=== PATIENT | male | born 1970 | race Caucasian/White ===

== ENCOUNTER 2022-07-06 13:21 | Inpatient (IN) | payer MEDICAID ==
[~2022-07-06] VITALS: Ht 160 cm; Wt 97.5 kg
--- NOTE | 2022-07-06 13:05 | NUR ---
ADMITTED MED/SURG FROM [facility] A 52 YO MALE AWAKE ALERT AND ORIENTED X3 WITH ADM DX OF GI BLEED. DAUGHTER AT BEDSIDE AND HELPED INTERPRETING, ROUTINE ADMISSION ASSESSMENT INITIATED. CLOSELY MONITORED
[2022-07-06 13:30] VITALS: BP 130/72
--- NOTE | 2022-07-06 15:09 | NUR ---
SPOKE WITH DR Christopher MULLER REGARDING ADMISSION STATUS WITH ORDERS, DR DEL TORO BEEN CALLED FOR GI CONSULT
[2022-07-06 15:11] VITALS: BP 128/69
[2022-07-06] MEDS: ACETAMINOPHEN 325 MG TABLET PO PRN (15:55)
--- NOTE | 2022-07-06 15:55 | NUR ---
Patient complaining of headache, Tylenol 2 tablets given PO as ordered. No signs of distress, patient resting comfortably in bed. Need attended
[2022-07-06] MEDS ORDERED: ONDANSETRON 4 MG/2 ML VIAL IV PRN (18:15)
[2022-07-06] MEDS ORDERED: MAGNESIUM HYDROXIDE 30 ML LIQUID UDC PO PRN (18:15)
[2022-07-06] MEDS ORDERED: ACETAMINOPHEN 325 MG TABLET PO PRN (18:15)
[2022-07-06 20:00] VITALS: BP 117/61
[2022-07-06] MEDS: GUAIFENESIN/CODEINE 5 ML LIQUID UDC PO PRN (21:07)
[2022-07-07 05:00] VITALS: BP 106/50
[2022-07-07] MEDS: PANTOPRAZOLE SODIUM 40 MG TABLET.DR PO SCH (06:37)
[2022-07-07 07:23] LABS: HEMATOCRIT 28.8 % (36.7-47.1); MEAN CORPUSCULAR HEMOGLOBIN 24.2 uug (23.8-33.4); MEAN CORPUSCULAR VOLUME 76.1 fL (73.0-96.2); PLATELET COUNT (AUTO) 385 K/uL (152-348)
[2022-07-07 07:44] LABS: CREATININE 0.8 mg/dL (0.6-1.3); MAGNESIUM 2.2 mg/dL (1.8-2.4); PHOSPHOROUS 4.2 mg/dL (2.5-4.9); POTASSIUM 3.9 mmol/L (3.5-5.1)
[2022-07-07 07:55] LABS: THYROID STIMULATING HORMONE 4.844 mIU/mL (0.358-3.740)
[2022-07-07 12:06] VITALS: BP 122/72
[2022-07-07 16:03] VITALS: BP 120/63
[2022-07-07 20:00] VITALS: BP 127/75
[2022-07-08 04:00] VITALS: BP 120/63
--- NOTE | 2022-07-08 04:28 | NUR ---
Patient alert oriented, speak Green[place]ic daughter able to interpret for the patient, no complain of pain, no bloody bm noted so far, v/s stable, according to notes for possible procedure on Sunday. Daughter expressing to take father home or other hospital, cause wanted immediate care of the GI MD, patient has no active bleeding hgh 9.1, at this time, no chest pain noted. Notify Dr Chong patient request, MD reply stated no procedure on weekend, notify the daughter and patient.
--- NOTE | 2022-07-08 06:17 | NUR ---
Patient had a bowel movement x1 today with no blood on the bm, denies pain at this time, cont to monitor.
[2022-07-08 07:19] LABS: HEMATOCRIT 31.8 % (36.7-47.1); MEAN CORPUSCULAR HEMOGLOBIN 23.5 uug (23.8-33.4); MEAN CORPUSCULAR VOLUME 76.5 fL (73.0-96.2); PLATELET COUNT (AUTO) 418 K/uL (152-348)
[2022-07-08 07:48] LABS: BILIRUBIN,TOTAL 1.3 mg/dL (0.2-1.0); CREATININE 0.9 mg/dL (0.6-1.3); POTASSIUM 4.3 mmol/L (3.5-5.1)
[2022-07-08] MEDS: PANTOPRAZOLE SODIUM 40 MG TABLET.DR PO SCH ×2 (09:56→17:58)
[2022-07-08] MEDS: SOD FERRIC GLUC COMPLX/SUCROSE 125 MG in IV NORMAL SALINE 100 ML IV SCH (14:57)
[2022-07-08 20:00] VITALS: BP 96/60
[2022-07-09] MEDS: PANTOPRAZOLE SODIUM 40 MG TABLET.DR PO SCH ×2 (06:40→17:43)
[2022-07-09 08:00] VITALS: BP 134/82
[2022-07-09 11:35] VITALS: BP 148/83
[2022-07-09] MEDS: SOD FERRIC GLUC COMPLX/SUCROSE 125 MG in IV NORMAL SALINE 100 ML IV SCH (14:05)
[2022-07-09] MEDS ORDERED: GOLYTELY 4000 ML BOTTLE PO ONE (14:30)
[2022-07-09 15:59] VITALS: BP 132/69
--- NOTE | 2022-07-09 16:19 | NUR ---
SHIFT NOTE: PT IS ALERT AND ORIENTED X4 BUT MOZAMBICAN SPEAKING. HEAT PLANT SPECIALIST EXPLAINED TO PATIENT ABOUT GOLYTELY PT VERBALIZED UNDERSTANDING. NO SIGNS OF DISTRESS NOTED PATIENT DENIES PAIN. MEDICATION GIVEN ORDERED NO SIGNS ADVERSE REACTION NOTED. WILL ENDORSE TO EVENING NURSE. FALLS AND SAFETY PRECAUTION MAINTAINED WILL CONTINUE TO MONITOR.
[2022-07-10] MEDS: PANTOPRAZOLE SODIUM 40 MG TABLET.DR PO SCH ×2 (06:37→17:18)
[2022-07-10 06:58] LABS: HEMATOCRIT 31.5 % (36.7-47.1); MEAN CORPUSCULAR HEMOGLOBIN 23.7 uug (23.8-33.4); MEAN CORPUSCULAR VOLUME 75.5 fL (73.0-96.2); PLATELET COUNT (AUTO) 396 K/uL (152-348)
[2022-07-10 12:04] VITALS: BP 114/58
[2022-07-10] MEDS: SOD FERRIC GLUC COMPLX/SUCROSE 125 MG in IV NORMAL SALINE 100 ML IV SCH (13:45)
[2022-07-10 16:36] VITALS: BP 156/88
--- NOTE | 2022-07-10 18:17 | NUR ---
Pt taken via bed down to surgery for his EGD/CL by Pratima RN. Pt Stable, no s/s of distress or SOB at this time. Will endorse to security shift manager.
[2022-07-10] MEDS ORDERED: PROPOFOL 200 MG/20 ML BOTTLE ONE (19:05)
[2022-07-10] MEDS ORDERED: LIDOCAINE-MPF 2% 5 ML VIAL ONE (19:05)
--- NOTE | 2022-07-10 19:10 | NUR ---
Pt is noted off the unit as report received from the off going nurse that, pt is off the unit , in OR for EGD and COLONOSCOPE . Pt care continue as awaits return from PACU to the unit here 3RD Floor Room 301
--- NOTE | 2022-07-10 20:10 | NUR ---
Pt is noted on the unit from PACU alert, responsive and Trinid[place] speaking and Family at bedside due to S/P EGD/ COLONOSCOPE as report is received from SIZING MACHINE OPERATOR that, EGD negative with Gastritis which was Biopsied and Colonoscope was also Negative with Internal Hemorrhoids noted . Pt is stable with no s/s off distress or C/O pain. Pt care continue as he will be monitor closely for any S/S off distress or change in conditions during the shift.
[2022-07-10 20:43] VITALS: BP 152/93
--- NOTE | 2022-07-11 00:30 | NUR ---
Pt remain full code with no S/S off distress or C/O pain, call light in reach and fall precautions in place. Pt care continue.
[2022-07-11 04:10] VITALS: BP 107/49
--- NOTE | 2022-07-11 04:15 | NUR ---
Pt is sleeping with no s/s off distress or C/O pain as he is been assisted as needed with AM care . Pt care continue.
[2022-07-11] MEDS: PANTOPRAZOLE SODIUM 40 MG TABLET.DR PO SCH ×2 (06:59→17:50)
--- NOTE | 2022-07-11 07:22 | NUR ---
Pt is stable as he is up in bed with call light in reach and fall precautions in place as report is given to the AM receiving nurse. Pt care continue.
[2022-07-11 11:33] VITALS: BP 118/49
[2022-07-11] MEDS: ACETAMINOPHEN 325 MG TABLET PO PRN ×2 (11:53→21:29)
[2022-07-11] MEDS: FERROUS SULFATE 325 MG TABEC PO SCH (13:20)
--- NOTE | 2022-07-11 14:56 | NUR ---
Pt rec'd stable in bed> No distress noted, S/P egd/colonoscopy.of 07/10.
--- NOTE | 2022-07-11 14:58 | NUR ---
Pt c/o pain in left arm. Noted to be red and warm to touch. old venipuncture or iv site to lt anticubital. Call placed to MD Order placed for lt upper extremity Doppler stat done.
[2022-07-11 16:35] VITALS: BP 103/62
[2022-07-11] MEDS: GLUCERNA SHAKE 237 ML CAN PO SCH (17:50)
--- NOTE | 2022-07-11 18:07 | NUR ---
Dr Mays called with result of Doppler. As per report same positive for DVT. Pt also febrile . See new orders given by
--- NOTE | 2022-07-11 18:09 | NUR ---
Chest xray done Tylenol 650 given and cold compresses
[2022-07-11 20:22] VITALS: BP 107/56
[2022-07-11] MEDS: ATORVASTATIN 10 MG TABLET PO SCH ×2 (21:00→21:28)
[2022-07-11 23:23] LABS: *BILIRUBIN,URIN NEGATIVE (NEGATIVE); *BLOOD, URINE NEGATIVE (NEGATIVE); *CLARITY,URINE CLEAR (CLEAR); *COLOR,URINE YELLOW (YELLOW); *KETONES,URINE TRACE (NEGATIVE); *UROBILINOGEN,URINE 0.2 E.U./dl (NORMAL); LEUKOCYTE ESTERASE ,URINE NEGATIVE (NEGATIVE); NITRITE, URINE NEGATIVE (NEGATIVE); UGLUCOSE NEGATIVE (NEGATIVE)
[2022-07-11 23:38] LABS: RBC,URINE 0-3 /HPF (0-3); WBC,URINE NONE SEEN /HPF (0-3)
[2022-07-11 23:39] LABS: BACTERIA,URINE NONE SEEN /HPF (NONE SEEN); SQUAMOUS EPITHELIAL CELL,UR FEW /HPF (NONE SEEN)
[2022-07-12 04:20] VITALS: BP 121/59
--- NOTE | 2022-07-12 04:41 | NUR ---
Pt had Fever 101.1, given Tylenol 650mg po, and goes to 99. will continue to monitor.
--- NOTE | 2022-07-12 04:43 | NUR ---
Swab pt for COVID antigen and influenza with negative results both.
--- NOTE | 2022-07-12 04:45 | NUR ---
Put warm pack on pt's left arm due to swelling. pt complaining from pain and discomfort in that site.
[2022-07-12] MEDS: PANTOPRAZOLE SODIUM 40 MG TABLET.DR PO SCH (06:52)
[2022-07-12 08:04] LABS: HEMATOCRIT 32.1 % (36.7-47.1); MEAN CORPUSCULAR HEMOGLOBIN 23.7 uug (23.8-33.4); MEAN CORPUSCULAR VOLUME 75.3 fL (73.0-96.2); PLATELET COUNT (AUTO) 324 K/uL (152-348)
[2022-07-12] MEDS: ACETAMINOPHEN 325 MG TABLET PO PRN (08:58)
[2022-07-12] MEDS: FERROUS SULFATE 325 MG TABEC PO SCH (08:58)
[2022-07-12] MEDS: GLUCERNA SHAKE 237 ML CAN PO SCH (08:59)
[2022-07-12 09:05] LABS: BILIRUBIN,TOTAL 1.9 mg/dL (0.2-1.0); CREATININE 0.9 mg/dL (0.6-1.3); PHOSPHOROUS 3.1 mg/dL (2.5-4.9); POTASSIUM 3.6 mmol/L (3.5-5.1); TOTAL PROTEIN, SERUM 6.9 g/dL (6.4-8.2)
[2022-07-12] MEDS: GUAIFENESIN/CODEINE 5 ML LIQUID UDC PO PRN (09:11)
[2022-07-12 11:08] VITALS: BP 100/42
--- NOTE | 2022-07-12 11:16 | NUR ---
Patient awake in bed No distress noted. Lt upper extremity remains red and swollen, Warm pack applied as per MD order.
[2022-07-12 15:23] VITALS: BP 103/46
[2022-07-12] MEDS ORDERED: DOXYCYCLINE HYCLATE 100 MG TABLET PO SCH (15:30)
[2022-07-12] MEDS ORDERED: DOXY100T2 PO (16:00)
[2022-07-12] MEDS ORDERED: PANT40TA2 PO (16:00)
[2022-07-12] MEDS ORDERED: ACET325T53 PO (16:00)
[2022-07-12] MEDS ORDERED: ATOR10TA PO (16:00)
--- NOTE | 2022-07-12 17:46 | NUR ---
PATIENT EVALUATED BY DR BARDALES. ANTIBIOTIC ORDERED. DISCHARGED TO HOME. [facility]. PT LEFT FOR HOME ACCOMPANIED BY DAUGHTERS. D/C INSTRUCTIONS GIVEN PT TO F/U WITH PCP.
== END 2022-07-12 17:30 | disposition home or self-care (01) | DRG 241 ==
LOC: MEDSURG3 13:21
PROC: 0DB68ZX Excision of Stomach, Via Natural or Artificial Opening Endoscopic, Diagnostic (ICD-10-PCS; principal; 2022-07-10)
PROC: 0DJD8ZZ Inspection of Lower Intestinal Tract, Via Natural or Artificial Opening Endoscopic (ICD-10-PCS; principal; 2022-07-10)
DX: K29.71 Gastritis, unspecified, with bleeding (principal); I82.612 Acute embolism and thrombosis of superficial veins of left upper extremity; D50.9 Iron deficiency anemia, unspecified; K64.8 Other hemorrhoids; Z87.891 Personal history of nicotine dependence; M17.0 Bilateral primary osteoarthritis of knee; Z20.822 Contact with and (suspected) exposure to COVID-19; L03.114 Cellulitis of left upper limb; E66.01 Morbid (severe) obesity due to excess calories; Z68.38 Body mass index [BMI] 38.0-38.9, adult; R17 Unspecified jaundice; R73.03 Prediabetes; E78.5 Hyperlipidemia, unspecified
CPT/HCPCS: 36415; 71045; 83550; 83735; 84100; 84443; 85025; 87040; 88313-TC; 88342; A4663; G0378; J2916; J3490